=== PATIENT | female | born 1995 | race African-American/Black ===

== ENCOUNTER 2017-03-30 00:30 | Emergency (ER) | payer BC, MEDICAID ==
[~2017-03-30] VITALS: Ht 152.4 cm; Wt 56.9 kg
[~2017-03-30 00:30] MED LIST: CYCL-36 PO; METO10TA PO
[2017-03-30 00:39] VITALS: BP 108/67; PULSE 74; RESP 18; TEMP 98.2; O2SAT 98
[2017-03-30] MEDS ORDERED: SODIUM CHLORIDE 0.9% FLUSH 10 ML FLUSH IV FLUSH PRN ×2 (02:00→04:15)
[2017-03-30] MEDS ORDERED: ONDANSETRON HCL 4 MG/2 ML VIAL IV PUSH ONE (02:00)
[2017-03-30 02:45] VITALS: O2SAT 100
[2017-03-30 02:50] VITALS: BP 100/63; PULSE 69; RESP 18; O2SAT 100
[2017-03-30 02:59] LABS: AUTOMATED NEUTROPHIL # 7.7 TH/MM3 (1.8-7.7); BASOPHIL # 0.2 TH/MM3 (0-0.2); EOSINOPHIL # 0.1 TH/MM3 (0-0.4); EOSINOPHIL % 1.3 % (0.0-4.0); HEMATOCRIT 32.5 % (35.0-46.0); HEMO FLAGS DIFF FINAL; LYMPH % 16.5 % (9.0-44.0); LYMPHOCYTE # 1.7 TH/MM3 (1.0-4.8); MEAN CELL VOLUME 88.9 FL (80.0-100.0); MEAN CORPUSCULAR HEMOGLOBIN 31.5 PG (27.0-34.0); MEAN CORPUSCULAR HGB CONC 35.5 % (32.0-36.0); NEUT % 74.2 % (16.0-70.0); PLATELET COUNT 157 TH/MM3 (150-450); RED BLOOD COUNT 3.66 MIL/MM3 (4.00-5.30); RED CELL DISTRIBUTION WIDTH 14.7 % (11.6-17.2); WHITE BLOOD COUNT 10.3 TH/MM3 (4.0-11.0)
[2017-03-30 03:12] LABS: CHLORIDE 106 MEQ/L (98-107); POTASSIUM 3.7 MEQ/L (3.5-5.1); SODIUM (NA) 138 MEQ/L (136-145)
[2017-03-30 03:16] LABS: ANION GAP 7 MEQ/L (5-15); BICARBONATE 24.9 MEQ/L (21.0-32.0); BLOOD UREA NITROGEN 12 MG/DL (7-18)
[2017-03-30 03:19] LABS: ALT (GPT) 15 U/L (10-53); AST (GOT) 9 U/L (15-37); GLOMERULAR FILTRATION RATE 153 ML/MIN (>89)
[2017-03-30 03:20] LABS: TOTAL BILIRUBIN ADULT 1.8 MG/DL (0.2-1.0)
[2017-03-30 03:22] LABS: ALKALINE PHOSPHATASE 49 U/L (45-117)
[2017-03-30 03:23] LABS: BLOOD, URINE LARGE (NEG); GLUCOSE,URINE NEG (NEG); KETONE, URINE NEG (NEG); NITRITE,URINE NEG (NEG)
[2017-03-30 03:30] LABS: URINE COLOR YELLOW (YELLW/STRAW)
[2017-03-30] MEDS ORDERED: SODIUM CHLOR 0.9% 1000 ML INJ 1,000 ML IV ONE (03:30)
[2017-03-30 03:31] LABS: SQUAMOUS EPITHELIAL CELL URINE 0-5 /hpf (0-5)
[2017-03-30 03:32] LABS: BACTERIA, URINE FEW /hpf; COMMENT (UR) CULTURE INDICATED; CULTURE IF INDICATED CULTURE INDICATED; MUCUS URINE OCC /lpf (OCC)
[2017-03-30] MEDS ORDERED: Vancomycin Consult Pharmacy 1 EA OTHER SCH (04:15)
[2017-03-30] MEDS ORDERED: NALOXONE HCL 0.4 MG/ML AMP IV PUSH PRN (04:15)
[2017-03-30] MEDS ORDERED: KETOROLAC TROMETHAMINE 30 MG/ML (IVP) VIAL IV PUSH ONE (04:15)
[2017-03-30 04:40] VITALS: BP 104/66; PULSE 78; RESP 18; O2SAT 97
[2017-03-30] MEDS ORDERED: IOHEXOL 350 MG/ML 10 ML VIAL (for RAD DIAG) IVCONTRAST ONE (04:46)
--- NOTE | 2017-03-30 04:59 | RADRPT ---
EXAM DATE/TIME: 03/30/2017 04:34 [place] COMPARISON: No previous studies available for comparison. INDICATIONS : Right lower quadrant pain. IV CONTRAST: 75 cc Omnipaque 350 (iohexol) IV ORAL CONTRAST: No oral contrast ingested. RADIATION DOSE: 5.24 CTDIvol (mGy) MEDICAL HISTORY : None SURGICAL HISTORY : section. ENCOUNTER: Initial ACUITY: 1 day PAIN SCALE: 10/10 LOCATION: Right lower quadrant TECHNIQUE: Volumetric scanning of the abdomen and pelvis was performed. Using automated exposure control and ad justment of the mA and/or kV according to patient size, radiation dose was kept as low as reasonably achievable to obtain optimal diagnostic quality images. DICOM format image data is available electro nically for review and comparison. FINDINGS: LOWER LUNGS: The visualized lower lungs are clear. LIVER: Homogeneous density without lesion. There is no dilation of the biliary tree. The gallbladder is con tracted and has an 8 mm stone within it. There is pericholecystic fluid.. SPLEEN: Normal size without lesion. PANCREAS: Within normal limits. KIDNEYS: Normal in size and shape. There is no mass, stone or hydronephrosis. ADRENAL GLANDS: Within normal limits. VASCULAR: There is no aortic aneurysm. BOWEL/MESENTERY: The stomach, small bowel, and colon demonstrate no acute abnormality. There is no free intraperitone al air or fluid. Appendix within normal limits. ABDOMINAL WALL: Within normal limits. RETROPERITONEUM: There is no lymphadenopathy. BLADDER: No wall thickening or mass. REPRODUCTIVE: Within normal limits. Very small free fluid seen in the pelvic cul-de-sac, within physiologic limits for a patient this age. INGUINAL: There is no lymphadenopathy or hernia. MUSCULOSKELETAL: Within normal limits for patient age. CONCLUSION: 1. Contracted gallbladder with at least one stone and pericholecystic fluid. Calculus cholecystitis p ossible in the proper clinical setting. No ductal stone or ductal dilatation. 2. Otherwise within normal limits. No evidence of appendicitis. Christiano Schulte MD on March 30, 2017 at 4:54 Board Certified Radiologist. This report was verified electronically.
[2017-03-30] MEDS ORDERED: PIPERACIL-TAZO 4.5 GM PREMIX 100 ML IV SCH (05:00)
--- NOTE | 2017-03-30 05:23 | PD ---
HPI Chief Complaint: Abdominal Pain Time Seen by Provider: 01:53 Travel History International Travel<30 days: No Contact w/Intl Traveler<30days: No Traveled to known affect area: No History of Present Illness HPI 21 year-old female presents to the emergency department for complaint of urinary frequency and dysuria with lower abdominal pain. Patient states pain is primarily right lower quadrant. Patient states symptoms have been present for the past few days with increasing pain this evening. Patient is just finishing her menses. Patient denies fever chills nausea vomiting or flank pain. Patient is not able to identify exacerbating or alleviating factors. Patient denies . Patient is 1 para 1 and status post C- section September 2016. Patient rates pain as 10 over 10 in intensity. Patient is concerned that she has an urinary tract infection. Patient's had no pelvic pain and no abnormal discharge or bleeding. Patient's had no injury. Patient denies any chronic medical problems other than history of asthma. PFSH Past Medical History Narrative Medical asthma occasional alcohol use: Nursing notes reviewed Asthma: Yes Diminished Hearing: No Immunizations Current: No Tetanus Vaccination: > 5 Years Influenza Vaccination: Yes ?: Unknown LMP: 3 days ago : 1 Para: 1 Past Surgical History Section: Yes Genitourinary Surgery: Yes () Social History Alcohol Use: Yes (Occasionally) Tobacco Use: No Substance Use: No Allergies-Medications (Allergen,Severity, Reaction): Coded Allergies: No Known Allergies (Verified , 03/30/17) Reported Meds & Prescriptions Reported Meds & Active Scripts Active Keflex (Cephalexin) 500 Mg Capsule 500 Mg PO Q6H 10 Days Review of Systems Except as stated in HPI: all other systems reviewed are Neg General / Constitutional: No: Fever, Chills HENT: No: Congestion Cardiovascular: No: Chest Pain or Discomfort Respiratory: No: Shortness of Breath Gastrointestinal: Positive: Abdominal Pain (RLQ and suprapubic), No: Nausea, Vomiting, Diarrhea Genitourinary: Positive: Urgency, Frequency, Dysuria, No: Pelvic Pain, Flank Pain, Discharge, Vaginal Bleeding Musculoskeletal: No: Myalgias, Arthralgias Skin: No Rash Neurologic: No: Weakness Psychiatric: No: Anxiety Hematologic/Lymphatic: No: Lymph Node Enlargement Physical Exam Narrative GENERAL: Well-developed well-nourished female in no acute distress no respiratory distress SKIN: Warm and dry. HEAD: Normocephalic. EYES: No scleral icterus. No injection or drainage. NECK: Supple, trachea midline. No JVD or lymphadenopathy. CARDIOVASCULAR: Regular rate and rhythm without murmurs, gallops, or rubs. RESPIRATORY: Breath sounds equal bilaterally. No accessory muscle use. GASTROINTESTINAL: Abdomen soft, localized mild reproducible suprapubic tenderness to palpation and to right lower quadrant without guarding or rebound , nondistended. MUSCULOSKELETAL: No cyanosis, or edema. BACK: Nontender without obvious deformity. No CVA tenderness. Data Data Last Documented VS Vital Signs Date Time Temp Pulse Resp B/P (MAP) Pulse Ox O2 Delivery O2 Flow Rate FiO2 03/30/17 05:43 16 03/30/17 04:40 78 104/66 (79) 97 Room Air 03/30/17 00:39 98.2 Orders Orders Complete Blood Count With Diff (03/30/17 01:53) Comprehensive Metabolic Panel (03/30/17 01:53) Lipase (03/30/17 01:53) Urinalysis - C+S If Indicated (03/30/17 01:53) Iv Access Insert/Monitor (03/30/17 01:53) Ecg Monitoring (03/30/17 01:53) Oximetry (03/30/17 01:53) Sodium Chloride 0.9% Flush (Ns Flush) (03/30/17 02:00) Ed Urine Pregnancytest Poc (03/30/17 01:53) Ondansetron Inj (Zofran Inj) (03/30/17 02:00) Sodium Chlor 0.9% 1000 Ml Inj (Ns 1000 M (03/30/17 03:30) Urine Culture (03/30/17 02:40) Ketorolac Inj (Toradol Inj) (03/30/17 04:15) Ct Abd/Pel W Iv Contrast(Rout) (03/30/17 ) Sodium Chloride 0.9% Flush (Ns Flush) (03/30/17 04:15) Sodium Chloride 0.9% Flush (Ns Flush) (03/30/17 09:00) Naloxone Inj (Narcan Inj) (03/30/17 04:15) Consult Hand Surgery (10/3/17 ) Iohexol 350 Inj (Omnipaque 350 Inj) (03/30/17 04:46) Piperacil-Tazo 3.375 Gm Premix (Zosyn 3. (03/30/17 05:30) Labs Laboratory Tests Test 03/30/17 02:40 03/30/17 02:45 Urine Color YELLOW Urine Turbidity SLIGHT Urine pH 7.0 Urine Specific [place] 1.015 Urine Protein 100 mg/dL Urine Glucose (UA) NEG mg/dL Urine Ketones NEG mg/dL Urine Occult Blood LARGE Urine Nitrite NEG Urine Bilirubin NEG Urine Leukocyte Esterase SMALL Urine RBC 20-24 /hpf Urine WBC 20-24 /hpf Urine WBC Clumps MOD Urine Squamous Epithelial Cells 0-5 /hpf Urine Bacteria FEW /hpf Urine Mucus OCC /lpf Microscopic Urinalysis Comment CULTURE INDICATED White Blood Count 10.3 TH/MM3 Red Blood Count 3.66 MIL/MM3 Hemoglobin 11.5 GM/DL Hematocrit 32.5 % Mean Corpuscular Volume 88.9 FL Mean Corpuscular Hemoglobin 31.5 PG Mean Corpuscular Hemoglobin Concent 35.5 % Red Cell Distribution Width 14.7 % Platelet Count 157 TH/MM3 Mean Platelet Volume 11.4 FL Neutrophils (%) (Auto) 74.2 % Lymphocytes (%) (Auto) 16.5 % Monocytes (%) (Auto) 6.0 % Eosinophils (%) (Auto) 1.3 % Basophils (%) (Auto) 2.0 % Neutrophils # (Auto) 7.7 TH/MM3 Lymphocytes # (Auto) 1.7 TH/MM3 Monocytes # (Auto) 0.6 TH/MM3 Eosinophils # (Auto) 0.1 TH/MM3 Basophils # (Auto) 0.2 TH/MM3 CBC Comment DIFF FINAL Differential Comment Blood Urea Nitrogen 12 MG/DL Creatinine 0.59 MG/DL Random Glucose 102 MG/DL Total Protein 7.0 GM/DL Albumin 3.6 GM/DL Calcium Level 9.1 MG/DL Alkaline Phosphatase 49 U/L Aspartate Amino Transf (AST/SGOT) 9 U/L Alanine Aminotransferase (ALT/SGPT) 15 U/L Total Bilirubin 1.8 MG/DL Sodium Level 138 MEQ/L Potassium Level 3.7 MEQ/L Chloride Level 106 MEQ/L Carbon Dioxide Level 24.9 MEQ/L Anion Gap 7 MEQ/L Estimat Glomerular Filtration Rate 153 ML/MIN Lipase 76 U/L [facility] Medical Decision Making Medical Screen Exam Complete: Yes Emergency Medical Condition: Yes Medical Record Reviewed: Yes Interpretation(s) CT abd/pel: CONCLUSION: 1. Contracted gallbladder with at least one stone and pericholecystic fluid. Calculus cholecystitis possible in the proper clinical setting. No ductal stone or ductal dilatation. 2. Otherwise within normal limits. No evidence of appendicitis. Christiano Schulte MD on March 30, 2017 at 4:54 Board Certified Radiologist. This report was verified electronically. Differential Diagnosis Abdominal pain, UTI, , ruptured ovarian cyst, ovarian torsion, appendicitis, pancreatitis, atypical gastritis/peptic ulcer disease, biliary colic Narrative Course IV access obtained specimens collected and sent for resulting urinalysis identified to be abnormal with positive blood positive white blood cells clumped white blood cells and bacteria with culture indicated CBC with normal total white cell count mild left shift 74% neutrophils; metabolic panel total bilirubin is mildly elevated 1.8 otherwise values are normal range Patient continues complaining of right lower quadrant tenderness on exam otherwise abdomen is soft nontender and there is no guarding or rebound and no heel strike pain CT abdomen and pelvis ordered CT abdomen and pelvis resulted patient identified to have an 8 millimeter gallstone with contracted gallbladder no gallbladder wall thickening noted however radiologist does comment pericholecystic fluid identified. Patient reexamined abdomen is soft nontender no focal tenderness no point tenderness also no guarding or rebound, no clinical Hollins's sign. Patient has received dose of IV antibiotics. Patient remains afebrile. Patient will be placed on oral antibiotic for UTI and will be given general surgery referral for follow-up of cholelithiasis. Patient encouraged to return immediately to the emergency department if any upper abdominal pain postprandial pain nausea vomiting and especially any fever or chills. Patient notes understanding. Diagnosis Primary Impression: UTI (urinary tract infection) Qualified Codes: N30.01 - Acute cystitis with hematuria Additional Impression: Cholelithiasis Qualified Codes: K80.20 - Calculus of gallbladder without cholecystitis without obstruction Referrals: General Surgeon call for appointment Primary Care Physician 1 day Patient Instructions: General Instructions Departure Forms: Tests/Procedures, Work Release Special Instructions: no work x 1 day Additional Instructions: Increase fluid hydration Avoid fried and fatty foods Follow-up with primary care provider Follow-up with general surgeon regarding gallstone/cholelithiasis No work times one day Return to the emergency department for any concerns: such as pain, fever, or vomiting Med/Other Pt SpecificInfo: Prescription(s) given Scripts Cephalexin (Keflex) 500 Mg Capsule 500 MG PO Q6H for Infection for 10 Days, #40 CAP 0 Refills Prov: Irena Cantrell MD 03/30/17 Disposition: 01 DISCHARGE HOME Condition: Stable Irena Cantrell MD Mar 30, 2017 05:23
[2017-03-30] MEDS ORDERED: PIPERACIL-TAZO 3.375 GM PREMIX 50 ML IV ONE (05:30)
[2017-03-30] MEDS ORDERED: CEPH-460 PO (05:35)
[2017-03-30 05:43] VITALS: RESP 16
[2017-03-30 06:33] VITALS: BP 108/73
[2017-03-30] MEDS ORDERED: SODIUM CHLORIDE 0.9% FLUSH 10 ML FLUSH IV FLUSH SCH (09:00)
== END 2017-03-30 06:35 | disposition home or self-care (01) ==
LOC: PHED 00:30
DX: N30.01 Acute cystitis with hematuria (principal); K80.20 Calculus of gallbladder without cholecystitis without obstruction
CPT/HCPCS: 74177; 80053; 81001; 83690; 84703; 85025; 87077; 87086; 87186; 96361; 96365; 96375; 99285; J1885; J2405; J2543; J7030; Q9967